=== PATIENT | female | born 1950 ===

== ENCOUNTER 2025-09-16 15:10 | Emergency (ER) | payer MEDICARE, SELFPAY ==
[2025-09-16 15:31] VITALS: BP 164/73; PULSE 76; RESP 16; TEMP 36.1; O2SAT 98; BMI 30.2
--- NOTE | 2025-09-16 16:20 | ED.DENTAL ---
HPI - Dental/Oral <Ashlee Rodriguez PA-C - Last Filed: 09/16/25 19:35> General Chief complaint: Dental/Oral Stated complaint: tooth loose Time Seen by Provider: 09/16/25 16:19 History of Present Illness HPI Narrative: Ms. Aj is a very sweet 74-year-old female with no reported past medical history who presents to the emergency department for an upper right loose/dangling tooth since this morning. Patient deals with chronic poor dentition and is missing many teeth in his currently in the process of having an upper partial denture created by her dentist the [facility]. She knows that her tooth has been loose for awhile and while washing her face this morning, applying pressure over her teeth, she accidentally broke this loose tooth and it is now dangling by a small piece. She does not have significant pain but reports she is starting to develop a right-sided headache because she has been playing with the tooth all day. Related Data Previous Rx's ?Medication ?Instructions ?Recorded chlorhexidine gluconate 0.12 % 15 ml buccal BID #120 mL 09/16/25 mouthwash (Peridex) Allergies Allergy/AdvReac Type Severity Reaction Status Date / Time No Known Drug Allergies Allergy Verified 09/16/25 15:36 Review of Systems <Ashlee Rodriguez PA-C - Last Filed: 09/16/25 19:35> Review of Systems ROS Unobtainable: All systems reviewed & are unremarkable except as noted in HPI and below Exam <Ashlee Rodriguez PA-C - Last Filed: 09/16/25 19:35> Narrative Exam Narrative: GENERAL: 74 year old patient appears stated age. Well-developed patient, in no acute distress. HEAD: Atraumatic. Normocephalic. EYES: No scleral icterus. No injection or drainage. ENT: Uvula midline. Posterior oropharynx clear. Patient is missing multiple teeth. Tooth number 7 or 6 is decayed and fractured only attached by a proximally 2 mm piece of tooth, there is no tenderness to palpation of the remaining tooth, there is mild erythema of the surrounding gingiva, there is no edema no fluctuance induration or tenderness. NECK: Trachea midline. Cervical ROM intact. CARDIOVASCULAR: Regular rate RESPIRATORY: ?Nonlabored respirations. ?Speaking in clear, full sentences. NEURO: AOx3. ?Clear speech. ?Moves all 4 extremities appropriately. SKIN: No rash or erythema of visible areas Initial Vital Signs Initial Vital Signs: Vital Signs Temperature 97 F L 09/16/25 15:31 Pulse Rate 76 09/16/25 15:31 Respiratory Rate 16 09/16/25 15:31 Blood Pressure 164/73 H 09/16/25 15:31 Pulse Oximetry 98 09/16/25 15:31 Oxygen Delivery Method Room Air 09/16/25 15:31 <Nithya Suresh MD - Last Filed: 09/17/25 23:22> Initial Vital Signs Initial Vital Signs: Vital Signs Temperature 97 F L 09/16/25 15:31 Pulse Rate 76 09/16/25 15:31 Respiratory Rate 16 09/16/25 15:31 Blood Pressure 164/73 H 09/16/25 15:31 Pulse Oximetry 98 09/16/25 15:31 Oxygen Delivery Method Room Air 09/16/25 15:31 Course <Ashlee Rodriguez PA-C - Last Filed: 09/16/25 19:35> Orders Ordered: Discontinued Medications Acetaminophen (Acetaminophen 325 Mg Tablet) 975 mg PO NOW ONE Stop: 09/16/25 17:46 Last Admin: 09/16/25 17:58 Dose: 975 mg Documented By: DINO Vital Signs Vital signs: Vital Signs - 8 hr 09/16/25 15:31 09/16/25 18:09 Temperature 97 F L Pulse Rate 76 72 Respiratory Rate 16 16 Blood Pressure 164/73 H 158/69 H Pulse Oximetry 98 98 Oxygen Delivery Method Room Air Room Air <Nithya Suresh MD - Last Filed: 09/17/25 23:22> Orders Ordered: Discontinued Medications Acetaminophen (Acetaminophen 325 Mg Tablet) 975 mg PO NOW ONE Stop: 09/16/25 17:46 Last Admin: 09/16/25 17:58 Dose: 975 mg Documented By: DINO Vital Signs Vital signs: Vital Signs - 8 hr 09/16/25 15:31 09/16/25 18:09 Temperature 97 F L Pulse Rate 76 72 Respiratory Rate 16 16 Blood Pressure 164/73 H 158/69 H Pulse Oximetry 98 98 Oxygen Delivery Method Room Air Room Air MDM - Dental/Oral <Ashlee Rodriguez PA-C - Last Filed: 12/20/25 19:35> MDM Narrative Medical decision making narrative: 74-year-old female with no reported past medical history who presents to the emergency department for an upper right loose/dangling tooth since this morning. Differential diagnosis includes but is not limited to decayed tooth, fracture tooth, pulpitis, dental ferny, etc. On exam patient is in no acute distress, nontoxic appearing, vital signs appropriate. Her upper right front tooth is hanging, dangling, only attached by about 1 mm of tooth. She is not having any pain. I called and spoke with Oral Surgeon, Dr. Spears. He recommended gently removing the tooth and then leaving it alone if there is no pain or covering with calcium hydroxide if it is painful. He does not recommend antibiotics. Gently grasping the broken tooth with gauze, it was easily removed. Patient had no pain. She also had no pain to palpation of the remaining of the tooth. Therefore tooth was not covered. She was prescribed Peridex to use. Encourage her to follow up promptly with a dentist for further management. Discussed ER return precautions. Patient and her verbalized understanding of all information agreeable with the plan. She is stable for discharge home. Discharge Plan Departure Patient Disposition: Home Clinical Impression: Broken or cracked tooth, nontraumatic Instructions: DI for Dental Pain Activity Restrictions/Additional Instructions: Dear Ms. Aj, Thank you for coming to the emergency department. I am very sorry that you were dealing with a broken tooth. Today we removed the tooth. At this time it is important that you follow up with your dentist as soon as possible for further evaluation and removal of the remaining tooth. You have been prescribed a prescription mouthwash to use twice a day as needed to rinse your mouth. Please return to ER immediately if you develop severe pain, fevers, swelling of the gun, draining pus or any other concerns. Please follow up with your primary care doctor within the next 2-3 days for ER follow-up. (If you do not have a PCP you can call [phone]. ?to schedule an appointment with an [facility] Primary Care Provider) IF YOU DEVELOP ANY NEW OR WORSENING SYMPTOMS, RETURN TO THE ER! Please read the attached instructions, they highlight more specific treatments and interventions for you at home. Thank you for letting me participate in your care, Ashlee Rodriguez PA-C Prescriptions: New chlorhexidine gluconate [Peridex] 0.12 % mouthwash 15 ml buccal BID Qty: 120 0RF Referrals: Chris Keene [Primary Care Provider, Internal Medicine] Stand Alone Forms: Patient Portal/API ED Sign-out <Nithya Suresh MD - Last Filed: 09/17/25 23:22> Cosign ED Attending Tyra Attestation: I reviewed the documentation entered by the physician behavioral health assistant. I was directly involved in this patient?s care and assisted with physical exam. Documented history, examination findings, assessment, and plan with the PA. I agree with the evaluation and plan as documented. Nithya Suresh MD Emergency Medicine Attending
[2025-09-16] MEDS: ACETAMINOPHEN 325 MG TABLET 975 MG PO (17:58)
--- NOTE | 2025-09-16 18:08 | PC.NURSE ---
Pt was seen and evaluated by TERRI Galvan. Deemed fit for DC.
[2025-09-16 18:09] VITALS: BP 158/69; PULSE 72; RESP 16; O2SAT 98
== END 2025-09-16 18:11 | disposition home or self-care (01) ==
PROVIDERS: Emergency Provider Physician Assistant; PCP Hospitalist
DX: K03.81 Cracked tooth (principal)
CPT/HCPCS: 99283